=== PATIENT | female | born 1970 | race Caucasian/White ===

== ENCOUNTER → 2017-01-15 | Outpatient (CLI) | payer BC ==
--- NOTE | 2017-01-15 15:33 | MAM ---
History: Well woman exam. Date of exam: 01/15/2017 Services provided: Bilateral full field digital screening mammography. CAD, the images were reviewed with R2 computer aided detection. FINDINGS: Glandular tissue is scattered glandular contour with increased mammographic density. Mammographically benign appearing bilateral subpectoral implants. Comparison with 2015 study. No dominant mass, architectural distortion or clustered microcalcification. IMPRESSION: Benign exam Recommendation: Routine annual mammography BIRAD CATEGORY: 2 BENIGN Electronically signed by: Sheryl Mckeon MD 01/15/2017 3:30 PM CDT
== END | disposition home or self-care (01) ==
LOC: MAMMO 10:13
PROVIDERS: ATTEND Obstetrics & Gynecology
DX: Z12.31 Encounter for screening mammogram for malignant neoplasm of breast (principal)

== ENCOUNTER → 2018-05-28 | Outpatient (CLI) | payer BC ==
--- NOTE | 2018-05-30 08:44 | MAM ---
EXAM DESCRIPTION: 3D Screening BILATERAL : Digital Mammography. CLINICAL HISTORY: 47 years Female SCREENING . No personal history or family history of breast cancer. Mother with ovarian cancer. Childbirth. Hysterectomy. Currently on HRT. Lifetime risk of developing breast cancer (Tyrer-Cuzick model) is 15.9 %. COMPARISON: 2-D digital screening bilateral study 01/15/2017. TECHNIQUE: Bilateral CC and MLO projection full-field images, with Luis Implant Displacement Digital tomosynthesis mammographic technique. Bilateral digital 2-D full-field MLO images. CAD not utilized. Bilateral 2-D digital full-field images, MLO and CC projections, non-displaced, with CAD. FINDINGS: The breast parenchymal density pattern is: Extremely dense breast tissue, which lowers the sensitivity of mammography. No skin thickening or nipple retraction. Diffusely dense breast tissue. Bilateral subpectoral saline implants. Capsules appear intact where seen. No new focal, stellate mass or density, focal asymmetry , and no suspicious microcalcifications bilaterally. Stable mammograms compared to prior study. Taking into account, differences in mammographic technique. IMPRESSION: Benign exam. BIRAD CATEGORY: 2 BENIGN FINDINGS. RECOMMENDATIONS: FOLLOW UP: Routine digital bilateral screening, one year interval from May 2018. Written communication explaining the IMPRESSION and follow-up, will be mailed to the patient and referring health care provider. According to the [employer], yearly mammograms are recommended starting at age 40 and continuing as long as a woman is in good health. Any breast change noted on a breast self-exam should be reported promptly to the patient's healthcare provider. Breast MRI is recommended for women with an approximately 20-25% or greater lifetime risk of breast cancer, including women with a strong family history of breast or ovarian cancer and women who have been treated for Hodgkin's disease. A negative mammographic report should not delay tissue diagnosis in patients with significant clinical history or physical findings. Extremely dense breast tissue limits the sensitivity of digital mammography. Electronically signed by: Bry Day MD 05/30/2018 8:43 AM CDT
== END ==
LOC: MAMMO 13:00
PROVIDERS: ATTEND Obstetrics & Gynecology
DX: Z12.31 Encounter for screening mammogram for malignant neoplasm of breast (principal)

== ENCOUNTER → 2019-10-17 | Outpatient (CLI) | payer BC ==
--- NOTE | 2019-10-21 11:23 | MAM ---
EXAM DESCRIPTION: 3D Screening BILATERAL : Digital Mammography. CLINICAL HISTORY: 49 years Female ANNUAL SCREENING . No complaints. No personal history of breast cancer. Mother with ovarian cancer and 69. Remote family history of breast cancer. Menarche age 16. Childbirth none. Hysterectomy age 47. Currently on HRT. Bilateral breast augmentation. Lifetime risk of developing breast cancer (Tyrer-Cuzick model)(%): 15.5. COMPARISON: Bilateral screening digital breast tomosynthesis with implant displacement views May 2018. 2-D digital screening mammography with implant displacement views December 2016. No prior reports available. TECHNIQUE: Bilateral CC and MLO projection full-field images, with Luis Implant Displacement digital tomosynthesis mammographic technique. Bilateral 2-D digital full-field images, MLO and CC projections, non-displaced. Bilateral digital 2-D full-field MLO images. Implant displaced. CAD available for 2-D images. FINDINGS: The breast parenchymal density pattern is: Extremely dense breast tissue, which lowers the sensitivity of mammography. No skin thickening or nipple retraction. Bilateral retro-muscular saline implants. Capsules appear intact where seen. No new focal, stellate mass or density, focal asymmetry , and no suspicious microcalcifications bilaterally. Stable mammograms compared to prior study. IMPRESSION: Benign exam. Retro-muscular saline implants stable. BIRAD CATEGORY: 2 BENIGN FINDINGS. RECOMMENDATIONS: FOLLOW UP: Routine digital bilateral mammographic screening, one year interval from September 2019. Written communication explaining the IMPRESSION and follow-up, will be mailed to the patient and referring health care provider. According to the [employer], yearly mammograms are recommended starting at age 40 and continuing as long as a woman is in good health. Any breast change noted on a breast self-exam should be reported promptly to the patient's healthcare provider. Breast MRI is recommended for women with an approximately 20-25% or greater lifetime risk of breast cancer, including women with a strong family history of breast or ovarian cancer and women who have been treated for Hodgkin's disease. A negative mammographic report should not delay tissue diagnosis in patients with significant clinical history or physical findings. Extremely dense breast tissue limits the sensitivity of digital mammography. Electronically signed by: Bry Day MD 10/21/2019 11:22 AM [employer]
== END ==
LOC: MAMMO 13:17
PROVIDERS: ATTEND Obstetrics & Gynecology
DX: Z12.31 Encounter for screening mammogram for malignant neoplasm of breast (principal); Z98.82 Breast implant status

== ENCOUNTER → 2020-10-22 | Outpatient (CLI) | payer BC ==
--- NOTE | 2020-10-23 15:00 | MAM ---
EXAM DESCRIPTION: 3D Screening BILATERAL : Digital Mammography. CLINICAL HISTORY: 50 years Female SCREENING . No complaints. Mother with ovarian cancer seventh decade. Remote family history of breast cancer. Menarche age 16. No childbirth. Hysterectomy age 47. Currently on HRT. Bilateral breast augmentation.. Lifetime risk of developing breast cancer (Tyrer-Cuzick model)(%): 8.9. COMPARISON: Bilateral screening digital breast tomosynthesis with Luis implant displacement technique 2019 and May 2018 TECHNIQUE: Bilateral CC and MLO projection full-field images, with Luis Implant Displacement digital tomosynthesis mammographic technique. Bilateral 2-D digital full-field images, MLO and CC projections, non-displaced. Bilateral digital 2-D full-field MLO images. MLO projections. CAD available for 2-D images. FINDINGS: The breast parenchymal density pattern is: Extremely dense breast tissue, which lowers the sensitivity of mammography. Bilateral retro-muscular saline implants with bilateral folds. No skin thickening or nipple retraction No new focal, stellate mass or density, focal asymmetry , and no suspicious microcalcifications bilaterally. Stable mammograms compared to prior study. IMPRESSION: Benign exam. BIRAD CATEGORY: 2 BENIGN FINDINGS. RECOMMENDATIONS: FOLLOW UP: Routine digital bilateral mammographic screening, one year interval from September 2020. Written communication explaining the IMPRESSION and follow-up, will be mailed to the patient and referring health care provider. According to the [employer], yearly mammograms are recommended starting at age 40 and continuing as long as a woman is in good health. Any breast change noted on a breast self-exam should be reported promptly to the patient's healthcare provider. Breast MRI is recommended for women with an approximately 20-25% or greater lifetime risk of breast cancer, including women with a strong family history of breast or ovarian cancer and women who have been treated for Hodgkin's disease. A negative mammographic report should not delay tissue diagnosis in patients with significant clinical history or physical findings. Extremely dense breast tissue limits the sensitivity of digital mammography. Electronically signed by: Bry Day MD 10/23/2020 2:58 PM [facility]
== END ==
LOC: MAMMO 11:02
PROVIDERS: ATTEND Obstetrics & Gynecology
DX: Z12.31 Encounter for screening mammogram for malignant neoplasm of breast (principal)

== ENCOUNTER 2020-11-01 18:05 | Emergency (ER) | payer BC ==
[2020-11-01 18:36] VITALS: O2SAT 100
[2020-11-01] MEDS ORDERED: ceFAZolin SODIUM 1 GM in SODIUM CHL 0.9% 50ML MIN-BAG+ 50 ML IVPB ONE (18:37)
[2020-11-01] MEDS ORDERED: TETANUS,DIPHTHERIA,PERTUSSIS 1 EA SYG IM ONE (18:38)
--- NOTE | 2020-11-01 18:49 | RAD ---
EXAM: Hand,Left 2 Views CLINICAL INDICATION: Laceration COMPARISON: There is no previous study for comparison. FINDINGS: 3 views of the left hand reveal partial amputation of the tip of the thumb including absence of the distal half of the distal phalanx as well as adjacent soft tissues. No radiopaque foreign body is seen. The osseous structures are otherwise unremarkable. IMPRESSION: Partial bone and soft tissue amputation involving the distal phalanx of the left thumb. Electronically signed by: Kang Arenas MD 11/01/2020 6:48 PM [facility]
[2020-11-01] MEDS ORDERED: HYDROmorphone HCL INJ 2 MG/ML VIAL IV ONE (18:59)
--- NOTE | 2020-11-01 19:48 | ED.PDOC ---
History of Present Illness - General Chief Complaint: Laceration Stated Complaint: Cut off tip of left thumb Time Seen by Provider: 11/01/20 18:37 Source: patient, RN notes reviewed, Vital Signs reviewed Exam Limitations: no limitations - History of Present Illness Initial Comments: Patient is a 50-year-old white female who presents status post injury to her left thumb. Patient was using a log splitter and cut the tip of her left thumb off. Patient complains of pain. It is severe in intensity. It is constant. It is worse with movement or palpation. It is throbbing in nature. There is no radiation of the pain. Occurred: just prior to arrival Severity: severe Pain Location: upper extremity Method of Injury: direct blow Improving Factors: nothing Worsening Factors: movement Loss of Consciousness: no loss of consciousness Associated Symptoms (Fall): denies symptoms Allergies/Adverse Reactions: Allergies NO KNOWN ALLERGY Allergy (Verified 11/01/20 18:27) Review of Systems - Review of Systems Constitutional: States: no symptoms reported, see HPI. Denies: chills, fever, malaise, weakness EENTM: States: no symptoms reported. Denies: eye pain, blurred vision, double vision Respiratory: States: no symptoms reported. Denies: cough, short of breath, stridor Cardiology: States: no symptoms reported. Denies: chest pain, palpitations, syncope Gastrointestinal/Abdominal: States: no symptoms reported. Denies: abdominal pain, diarrhea, nausea, vomiting Genitourinary: States: no symptoms reported. Denies: dysuria, frequency Musculoskeletal: States: see HPI, other - pt with distal left thumb partial amputation.. Denies: back pain, joint pain, neck pain Skin: States: no symptoms reported. Denies: change in color, rash Neurological: States: no symptoms reported. Denies: tingling, tremors, weakness Endocrine: States: no symptoms reported. Denies: increased hunger, increased thirst, increased urine Hematologic/Lymphatic: States: no symptoms reported. Denies: blood clots, easy bleeding All other Systems: Reviewed and Negative Past Medical History (General) - Patient Medical History Hx Seizures: No Hx Stroke: No Hx Dementia: No Hx Asthma: No Hx of COPD: No Hx Cardiac Disorders: No Hx Congestive Heart Failure: No Hx Pacemaker: No Hx Hypertension: No Hx Thyroid Disease: No Hx Diabetes: No Hx Gastroesophageal Reflux: No Hx Renal Disease: No Hx Cancer: No Hx of HIV: No Hx Hepatitis C: No Hx MRSA: No MRSA Source:: Wound Surgical History: no surgical history - Vaccination History Hx Tetanus, Diphtheria Vaccination: No Hx Influenza Vaccination: No Hx Pneumococcal Vaccination: No Immunizations Up to Date: No - Social History Hx Tobacco Use: No Hx Alcohol Use: No Family Medical History - Family History Mother Family History: Unknown Living Status: Unknown Physical Exam - Physical Exam General Appearance: Alert, Anxious, Obvious distress, Well Developed, Well Hydrated, Well Nourished Head Injury: no evidence of injury Eye Exam: bilateral normal ENT Exam: hearing grossly normal, no evidence of ENT injury, no dental injury Neck Exam: non-tender, full range of motion, normal alignment, normal inspection Cardiovascular/Respiratory: regular rate, rhythm, no M/R/G, normal peripheral pulses, no JVD, normal breath sounds, no respiratory distress Gastrointestinal/Abdominal: normal bowel sounds, non tender, soft, no organomegaly, no pulsatile mass Back Exam: normal inspection, no CVA tenderness, no vertebral tenderness Extremity Exam: pain with movement, other - Patient with a partial amputation of the distal left thumb. The amputation starts just proximal to the nail matrix and extends distally slicing the thumb in half. And excising the whole nail bed. Neurologic: chucker II-XII nml as tested, no motor/sensory deficits, alert, normal mood/affect, oriented x 3 Skin Exam: normal color, warm/dry - Domenic Coma Score Best Eye Response ([place]): (4) open spontaneously Best Verbal Response ([place]): (5) oriented Best Motor Response ([place]omen[place]): (6) obeys commands [place] Total: 15 Progress - Progress Progress: Differential diagnosis: Partial fingertip amputation, open fracture, cellulitis, laceration among others. 11/01/20 19:52 Patient with a partial distal thumb fingertip amputation with open fracture. Patient has been given IV antibiotics and tetanus prophylaxis. Patient has agreed to transfer to the trauma center for further evaluation and treatment for her injury. Plan on discharge/transfer to [facility] for further care. Marshall Quiroz M.D. #[id number] - Results/Orders Results/Orders: EXAM: Hand,Left 2 Views CLINICAL INDICATION: Laceration COMPARISON: There is no previous study for comparison. FINDINGS: 3 views of the left hand reveal partial amputation of the tip of the thumb including absence of the distal half of the distal phalanx as well as adjacent soft tissues. No radiopaque foreign body is seen. The osseous structures are otherwise unremarkable. IMPRESSION: Partial bone and soft tissue amputation involving the distal phalanx of the left thumb. Electronically signed by: Kang Arenas MD 11/01/2020 6:48 PM [facility] Vital Signs 11/01/20 18:29 Temperature 97.9 F Pulse Rate [ 66 Right Radial] Respiratory 24 Rate Blood Pressure 137/83 [Right Arm] O2 Sat by Pulse 100 Oximetry - EKG/XRAY/CT CT Ordered: No Departure - Departure Clinical Impression: Partial traumatic amputation of thumb through phalanx Qualifiers: Encounter type: initial encounter Laterality: left Qualified Code(s): S68.522A - Partial traumatic transphalangeal amputation of left thumb, initial encounter Open fracture of thumb Qualifiers: Encounter type: initial encounter Phalanx: distal Fracture alignment: nondisplaced Laterality: left Qualified Code(s): S62.525B - Nondisplaced fracture of distal phalanx of left thumb, initial encounter for open fracture Time of Disposition: 19:59 Disposition: Transfer to Hospital Condition: Good Departure Forms: ED Discharge - Pt. Copy, Patient Portal Self Enrollment Instructions: DI for Laceration Repair Diet: other - npo Referrals: Dax Dumont MD [Primary Care Provider] - 1-5 Days Transfer to Outside Facility - Transfer Information Decision to Transfer Date: 11/01/20 Decision to Transfer Time: 19:00 Reason for Transfer: required specialist not available Accepting Facility: [facility]
[2020-11-01 19:53] VITALS: BP 132/80; TEMP 97.8
== END 2020-11-01 19:53 | disposition short-term general hospital (02) ==
LOC: ER 18:05
DX: S68.522A Partial traumatic transphalangeal amputation of left thumb, initial encounter (principal); W31.2XXA Contact with powered woodworking and forming machines, initial encounter; Y92.009 Unspecified place in unspecified non-institutional (private) residence as the place of occurrence of the external cause
CPT/HCPCS: 73120; 90471; 90715; J0690; J1170; J7050